=== PATIENT | female | born 1970 | race Two or more races ===

== ENCOUNTER 2024-07-05 17:38 | Emergency (ER) | payer OTHER ==
[~2024-07-05] VITALS: Ht 154.9 cm; Wt 83.9 kg
[~2024-07-05 17:38] MED LIST: DEPO-PROVER400 MG/ML
[2024-07-05] MEDS ORDERED: HYDROCODONE/CHLORPHEN P-STIREX 5 ML ML PO STA (19:15)
[2024-07-05] MEDS ORDERED: DEXAMETHASONE SODIUM PHOSPHATE 4 MG/ML VIAL IM STA (19:17)
[2024-07-05] MEDS ORDERED: DEXAMETHASONE SODIUM PHOSPHATE 4 MG/ML VIAL ONE (19:26)
== END 2024-07-05 20:21 | disposition home or self-care (01) ==
LOC: ER 17:41
DX: J32.9 Chronic sinusitis, unspecified (principal); R05.9 Cough, unspecified; Z91.018 Allergy to other foods